=== PATIENT | female | born 1960 | race African-American/Black ===

== ENCOUNTER 2025-04-28 21:53 | Emergency (ER) | payer OTHER ==
[2025-04-28 22:30] LABS: #Basophils Less than 0.03 10x3/uL (0.0-0.2); #Eosinophils 0.12 10x3/uL (0.0-0.7); #Monocytes 0.59 10x3/uL (0.11-0.59); #Neutrophils 5.76 10x3/uL (1.40-6.50); %Basophils 0.3 % (0.0-1.0); %Eosinophils 1.6 % (0.0-10.0); %Lymphocytes 10.0 % (21.0-51.0); %Monocytes 8.1 % (0.0-10.0); %Neutrophils 79.2 % (42.0-75.0); Hematocrit 26.4 % (36.0-47.0); Hemoglobin 7.9 g/dL (12.0-16.0); Mean Corpuscular Hemoglobin 32.5 pg (27.0-31.0); Mean Corpuscular Volume 108.6 fL (78.0-98.0); Platelet Count 226 10x3/uL (130-400); Red Blood Cell (RBC) Count 2.43 mill/uL (4.20-5.40); White Blood Cell (WBC) Count 7.28 10x3/uL (4.8-10.8)
[2025-04-28 22:48] LABS: ALT (SGPT) Less than 7 U/L (Less than 34); AST (SGOT) 29 U/L (11-34); Albumin 1.9 g/dL (3.1-4.5); Alkaline Phosphatase 98 U/L (40-110); Anion Gap 12 mmol/L (10-20); BUN (Urea Nitrogen) 7 mg/dL (9.8-20.1); Bilirubin, Total 0.2 mg/dL (0.3-1.2); Calc. Creatinine Clearance 0 mL/min (70-130); Calcium 8.5 mg/dL (7.8-10.44); Carbon Dioxide 29 mmol/L (23-31); Chloride 100 mmol/L (98-107); Globulin 3.4 g/dL (2.4-3.5); Glucose 84 mg/dL (80-115); Potassium 3.0 mmol/L (3.5-5.1); Sodium 138 mmol/L (136-145)
[2025-04-29] MEDS ORDERED: Vancomycin 1 GM/200 ML (FROZEN) BAG ONE (00:55)
[2025-04-29 12:13] LABS: ALT (SGPT) 7 U/L (Less than 34); AST (SGOT) 33 U/L (11-34); Albumin 1.8 g/dL (3.1-4.5); Alkaline Phosphatase 98 U/L (40-110); Anion Gap 13 mmol/L (10-20); BUN (Urea Nitrogen) 9 mg/dL (9.8-20.1); Bilirubin, Total 0.2 mg/dL (0.3-1.2); Calc. Creatinine Clearance 0 mL/min (70-130); Calcium 8.6 mg/dL (7.8-10.44); Carbon Dioxide 26 mmol/L (23-31); Chloride 101 mmol/L (98-107); Globulin 3.7 g/dL (2.4-3.5); Glucose 86 mg/dL (80-115); Potassium 3.7 mmol/L (3.5-5.1); Sodium 136 mmol/L (136-145)
== END 2025-04-29 12:03 | disposition short-term general hospital (02) ==
LOC: ERS 21:53
DX: S31.109A Unspecified open wound of abdominal wall, unspecified quadrant without penetration into peritoneal cavity, initial encounter (principal); J90 Pleural effusion, not elsewhere classified; I12.0 Hypertensive chronic kidney disease with stage 5 chronic kidney disease or end stage renal disease; N18.6 End stage renal disease; B20 Human immunodeficiency virus [HIV] disease; I48.91 Unspecified atrial fibrillation; K21.9 Gastro-esophageal reflux disease without esophagitis; X58.XXXA Exposure to other specified factors, initial encounter; Z99.2 Dependence on renal dialysis; Z86.73 Personal history of transient ischemic attack (TIA), and cerebral infarction without residual deficits; Z79.82 Long term (current) use of aspirin; Z79.899 Other long term (current) drug therapy
CPT/HCPCS: 70450; 71045; 71250; 74176; 80053; 83605; 83880; 84484; 85025; 87040 ×2; 93005; J2185; J2543; J3373; 36415; 96361; 96365; 96366; 96367; 96375